=== PATIENT | male | born 1965 | race Caucasian/White ===

== ENCOUNTER 2023-10-15 07:38 | Day surgery (SDC) | payer OTHER ==
[~2023-10-15 07:38] MED LIST: Bupivacaine 0.5% 30 ML SDV ONE; Midazolam 1 MG/ML 2 ML SDV ONE; Propofol 200 MG/20 ML SDV ONE; fentaNYL 100 MCG/2 ML SDV ONE
[2023-10-15 08:04] LABS: HEMATOCRIT 47.4 % (38.4-49.7); MEAN CORPUSCULAR HEMOGLOBIN 30.5 pg (31.6-35.5); MEAN CORPUSCULAR HGB CONC 33.8 g/dL (31.6-35.5); MEAN CORPUSCULAR VOLUME 90.3 fL (81.4-99.0); RED BLOOD CELL COUNT 5.25 M/uL (4.14-5.76); WHITE BLOOD CELL COUNT,WBC 6.3 K/uL (3.2-11.0)
[2023-10-15] MEDS: Nozin Nasal Sanitizer NASBOTH ONE (08:08)
[2023-10-15 08:24] LABS: ALANINE AMINOTRANSFERASE,ALT 29 U/L (12-78); ALBUMIN 3.7 g/dL (3.4-5.0); ALKALINE PHOSPHATASE 73 U/L (46-116); ASPARTATE AMNIOTRANSFERASE,AST 16 U/L (15-37); BILIRUBIN TOTAL 0.7 mg/dL (0.2-1.0); BLOOD UREA NITROGEN,BUN 10 mg/dL (7-18); CALCIUM 8.4 mg/dL (8.5-10.1); CARBON DIOXIDE,CO2 28 mmol/L (21-32); CHLORIDE,CL 102 mmol/L (100-108); CREATININE 0.8 mg/dL (0.8-1.3); ESTIMATED GFR 101 mL/min (>60); GLUCOSE RANDOM 90 mg/dL (74-106); POTASSIUM,K 4.1 mmol/L (3.6-5.2); PROTEIN TOTAL,TP 7.4 g/dL (6.4-8.2); SODIUM,NA 139 mmol/L (140-148)
[2023-10-15 08:25] LABS: ANION GAP 13.1 mmol/L (5.0-14.0)
[2023-10-15] MEDS: Lactated Ringers 1,000 ML IV SCH (08:25)
[2023-10-15] MEDS ORDERED: Succinylcholine 200 MG/10 ML MDV ONE (09:25)
[2023-10-15] MEDS ORDERED: Rocuronium 50 MG/5 ML Vial ONE (09:25)
[2023-10-15] MEDS ORDERED: Dexamethasone 4 MG/ML SDV ONE (09:25)
[2023-10-15] MEDS ORDERED: Ondansetron 4 MG/2 ML SDV ONE (09:25)
[2023-10-15] MEDS: ceFAZolin 2 GM in Premix Bag 1 BAG IV ONE (09:35)
[2023-10-15] MEDS ORDERED: fentaNYL 100 MCG/2 ML SDV ONE (10:03)
[2023-10-15] MEDS ORDERED: Lactated Ringers 1,000 ML ONE (11:40)
[2023-10-15] MEDS: Acetaminophen/oxyCODONE 325-5 MG Tab PO ONE (13:41)
== END 2023-10-15 13:59 | disposition home or self-care (01) ==
LOC: JP.SDS 07:38
PROVIDERS: ATTEND Specialist
DX: M75.122 Complete rotator cuff tear or rupture of left shoulder, not specified as traumatic (principal); I10 Essential (primary) hypertension; Z79.899 Other long term (current) drug therapy; F17.220 Nicotine dependence, chewing tobacco, uncomplicated
CPT/HCPCS: 29827; 29828; 36415; 80053; 85027; A9270; C1713; J0330; J0665; J0690; J1100; J2250; J2405; J2704; J3010; J7120; J3490